=== PATIENT | male | born 1980 | race Caucasian/White ===

== ENCOUNTER 2016-11-01 22:54 | Observation (INO) | payer OTHER ==
[2016-11-01 23:14] VITALS: BMI 21.5
[2016-11-01 23:19] VITALS: BP 115/70; PULSE 93; RESP 18; TEMP 98.2; O2SAT 100
[2016-11-01] MEDS ORDERED: Iohexol 240 (50 ml) PO ONE (23:52)
[2016-11-01] MEDS ORDERED: Dextrose 5%/0.9% NS 1,000 ML IV SCH (23:53)
[2016-11-01] MEDS ORDERED: Morphine 4 MG/ML VIAL IVP ONE (23:53)
[2016-11-01] MEDS ORDERED: Sodium Chloride 0.9% 1,000 ML IV STA (23:53)
--- NOTE | 2016-11-02 00:11 | ED PDOC ---
"HPI: Abdomen Time Seen by Provider: 11/01/16 23:10 Chief Complaint (Nursing): Chest Pain Chief Complaint (Provider): abdominal pain x 2 days History Per: Patient History/Exam Limitations: no limitations Onset/Duration Of Symptoms: Days (2 days), Gradual Outside of [place] travel?: No Current Symptoms Are (Timing): Still Present Context: Other Severity: Moderate Pain Scale Rating Of: 7 Location Of Pain/Discomfort: Diffuse Quality Of Discomfort: Dull, Aching Associated Symptoms: Nausea, Loss Of Appetite, Chest Pain. denies: Fever, Chills, Vomiting, Diarrhea, Back Pain, Constipation, Urinary Symptoms Exacerbating Factors: Cough, Food, Deep Breaths Alleviating Factors: None Last Bowel Movement: Today Additional History Per: Patient Additional Complaint(s): 36 year old male with PMHx Crohn's disease s/p total proctocolectomy in 2013 who presented for evaluation of abdominal pain. Pain has been ongoing for 2 months now but has been gradually worsening for the past 2 days. Associated with nausea but no vomiting. Patient was seen at [facility] earlier today, labs drawn but patient states they could not get an IV placed, so he left. Upon MR review, patient was also refused dilaudid which he had requested at [facility] earlier today. Presently sees GI Dr Mora for maintenance therapy for Crohn' s disease but unable to recall name of drug. No recurrence of disease since total proctocolectomy in 2013. Patient denies changes in stool. Patient not experiencing constipation or diarrhea. Patient denies other acute complaints at this time. PMD: Dr. Triplett GI: Dr. Mora PMHx: Crohn's Disease PSHx: Total proctocolectomy in 2013, appendectomy, hemorroidectomy Allergies: Zolpidem Social: Denies tobacco, alcohol, drugs. Past Medical History Vital Signs: Last Vital Signs Temp 98.2 F 11/01/16 23:14 Pulse 93 H 11/01/16 23:14 Resp 18 11/01/16 23:14 BP 115/70 11/01/16 23:14 Pulse Ox 100 11/02/16 03:57 - Medical History PMH: Anemia, Cardia Arrhythmia, Crohn's Disease (dx at 28 yrs old), Pneumonia ( 2002) Denies: Anxiety, Bipolar Disorder, Depression, Personality Disorder, Post Traumatic Stress Disorder, Chronic Kidney Disease, Schizophrenia - Surgical History Surgical History: Appendectomy Denies: Pacemaker - Immunization History Hx Tetanus Toxoid Vaccination: No Hx Influenza Vaccination: No Hx Pneumococcal Vaccination: No - Home Medications Home Medications: Ambulatory Orders Medication Instructions Recorded Oxycodone HCl/Acetaminophen 1 tab PO PRN PRN 11/01/16 [Percocet 10-325 mg Tablet] oxyCODONE [oxyCODONE Immediate 15 mg PO PRN PRN 11/01/16 Release Tab] - Allergies Allergies/Adverse Reactions: Allergies Allergy/AdvReac Type Severity Reaction Status Date / Time zolpidem tartrate Allergy DIZZINESS Verified 11/01/16 23:14 [From Ambien] Review of Systems ROS Statement: Except As Marked, All Systems Reviewed And Found Negative Physical Exam - Physical Exam Appears: Positive for: Non-toxic, No Acute Distress Head Exam: Positive for: ATRAUMATIC Skin: Positive for: Warm, Dry Eye Exam: Positive for: EOMI ENT: Positive for: Normal ENT Inspection Neck: Positive for: Painless ROM Cardiovascular/Chest: Positive for: Regular Rate, Rhythm Respiratory: Positive for: Normal Breath Sounds. Negative for: Accessory Muscle Use, Rales, Rhonchi, Wheezing, Respiratory Distress Gastrointestinal/Abdominal: Positive for: Tenderness (generalized mild tenderness to palpation and voluntary guarding), Other (s/p end ilostomy; colostomy bag in place) Back: Negative for: L CVA Tenderness, R CVA Tenderness Extremity: Negative for: Pedal Edema, Calf Tenderness Neurologic/Psych: Positive for: Alert, Oriented - ECG O2 Sat by Pulse Oximetry: 100 - Progress ED Course And Treament: Abdominal pain hx of crohn's disease IV access to be reattempted NS at 125 ml/hr Zofran ODT Morphine [address] abdo pelvis PO and IV if possible 1:46 am unable to get IV access after multiple attempts ,patients refusing PO contrast, CT abdo to be attempted without any contrast 2:51 am Patient requesting dilaudid, explained to pt that [facility] is an opiate free ER. Only able to provide morphine at most for severe pain. No dilaudid can be administered. CT abdo pelvis NO CONTRAST EXAM: CT Abdomen and Pelvis Without Intravenous Contrast EXAM DATE/TIME: Exam ordered 11/02/2016 2:02 AM CLINICAL HISTORY: 36 years old, male; Pain; Abdominal pain and other: Pelvis; Periumbilical; Prior surgery; Surgery date: 6+ months; Surgery type: Multiple surgeries related to chrohns. Appendectomy; Patient HX: Colostomy; Additional info: Diffuse generalized abd pain TECHNIQUE: Axial computed tomography images of the abdomen and pelvis without intravenous contrast. All CT scans at this facility use one or more dose reduction techniques, viz.: automated exposure control; ma/kV adjustment per patient size (including targeted exams where dose is matched to indication; i.e. head); or iterative reconstruction technique. Coronal and sagittal reformatted images were created and reviewed. COMPARISON: No relevant prior studies available. FINDINGS: Lower thorax: No acute findings. ABDOMEN: Liver: There is low attenuation adjacent to the falciform ligament of the liver consistent with focal fatty infiltration. Gallbladder and bile ducts: Unremarkable. No calcified stones. No ductal dilation. Pancreas: Unremarkable. No ductal dilation. Spleen: Unremarkable. No splenomegaly. Adrenals: Unremarkable. No mass. Kidneys and ureters: Unremarkable. No obstructing stones. No hydronephrosis. Stomach and bowel: Ostomy in the right lower quadrant, possibly ileostomy with colon resection. No obstruction. No mucosal thickening. Appendix: No findings to suggest acute appendicitis. PELVIS: MILADIS AICHA | Preliminary Radiology Report FEATHER BONER (QA) DISCREPANCY? If there is a discrepancy between the preliminary and final interpretation, please notify [employer] via [email or web address]. If you do not have access to our QA portal, call our QA team at [phone] CONFIDENTIALITY STATEMENT This report is intended only for the use of the referring physician, and only in accordance with law, If you received this in error, call [phone] Page 2 of 2 Bladder: Unremarkable. No stones. Reproductive: Unremarkable as visualized. ABDOMEN and PELVIS: Intraperitoneal space: Unremarkable. No free air. No significant fluid collection. Bones/joints: See above. Soft tissues: Unremarkable. Vasculature: Unremarkable. No abdominal aortic aneurysm. Lymph nodes: Unremarkable. No enlarged lymph nodes. IMPRESSION: 1. Right lower quadrant ostomy, possibly ileostomy with colon resection. 2. Otherwise negative CT abdomen/pelvis. No bowel obstruction or inflammatory change. Re-evaluation Time: 02:51 (unable to get IV access,patients refusing PO contrast , CT abdo to be attempted without any contrast) Condition: Re-examined, Improved Disposition - Clinical Impression Clinical Impression: Abdominal pain - Patient ED Disposition Is Patient to be Admitted: No - Disposition Disposition: Routine/Home Disposition Time: 03:56 Condition: GOOD"
[2016-11-02] MEDS ORDERED: Iohexol 240 (50 ml) ONE (00:33)
--- NOTE | 2016-11-02 12:44 | CT ---
PROCEDURE: CT abdomen and pelvis dated 11/02/2016. HISTORY: Diffuse generalized abd pain COMPARISON: None. TECHNIQUE: Contiguous axial images of the abdomen and pelvis performed without oral or intravenous given. Coronal and Sagittal reformats generated. Radiation dose: Total exam DLP = 354.49 mGy-cm. This CT exam was performed using one or more of the following dose reduction techniques: Automated exposure control, adjustment of the mA and/or kV according to patient size, and/or use of iterative reconstruction technique. FINDINGS: LOWER THORAX: Lung bases clear. No basilar infiltrates effusion or pneumothorax. Heart size within range of normal. LIVER: Liver is upper limits of normal/borderline enlarged measuring nearly 19 cm in CC dimension. . There is a localized area of low-attenuation anterior aspect left lobe liver bordering the falciform ligament likely representing an area of fatty infiltration. Followup at interval could be performed to exclude other pathology. GALLBLADDER AND BILE DUCTS: Unremarkable. PANCREAS: Unremarkable. No mass. No ductal dilatation. SPLEEN: Unremarkable. No splenomegaly. ADRENALS: Unremarkable. KIDNEYS AND URETERS: Unremarkable. No stone or hydronephrosis. BLADDER: Grossly unremarkable. Prostate gland measures approximately 3.7 cm in transverse dimension. Seminal vesicles appear grossly unremarkable. REPRODUCTIVE: APPENDIX: Appendix not visualized BOWEL: Evaluation of the bowel is limited due to the lack of oral contrast material. Stomach is incompletely distended which presumably accounts for slight thick-walled appearance. Gastritis not excluded. Visualized loops of small bowel exhibit normal contour and caliber. No evidence of acute mechanical small bowel obstruction. Right lower quadrant ostomy likely representing ileostomy in this patient who appears to be post colectomy. PERITONEUM: Unremarkable. No fluid collection. No free air. . Tiny fat containing umbilical hernia LYMPH NODES: Unremarkable. No enlarged lymph nodes. VASCULATURE: Unremarkable. No aortic aneurysm. BONES: No fracture or destructive lesion. OTHER FINDINGS: None. IMPRESSION: Right lower quadrant ostomy likely representing ileostomy in patient with apparent total colectomy. Clinical correlation recommended. Borderline -mild hepatomegaly. Probable fat within the anterior aspect left lobe liver bordering the falciform ligament. Preliminary report provided by overnight radiology service.
== END 2016-11-02 04:13 | disposition home or self-care (01) ==
LOC: H.ER 22:54 → H.EROBSV 23:54
PROVIDERS: ADMIT Emergency Medicine; ATTEND Emergency Medicine
DX: R10.9 Unspecified abdominal pain (principal); D64.9 Anemia, unspecified; I49.9 Cardiac arrhythmia, unspecified; K50.90 Crohn's disease, unspecified, without complications; Z93.2 Ileostomy status
CPT/HCPCS: 74176; 96372; 99282; G0378; J2270